=== PATIENT | female | born 1975 | race Caucasian/White ===

== ENCOUNTER 2021-01-31 11:24 | Emergency (ER) | payer OTHER, SELFPAY ==
--- NOTE | 2021-01-31 11:30 | ED.URI ---
HPI - URI/Sore Throat General Chief Complaint: Ear Stated Complaint: ear pain Time Seen by Provider: 01/31/21 11:30 Source: patient and RN notes reviewed History of Present Illness HPI Narrative: Patient is a 45-year-old female who presents the urgent care with complaints of right ear pain. Patient states is been ongoing for approximately 4 months and recurrent for the last 2 days. Patient denies of any fever, nausea, vomiting. Patient states that she has taken ibuprofen and used eardrops to the ear this morning. Patient states that the last time she was on antibiotics it did improve her symptoms. She has not called her PCP or her ENT prior to her arrival this morning. Denies of any other upper respiratory complaints. No other acute complaints. No acute distress noted. Patient aware of the plan of care. Some parts of this dictation were generated by voice recognition software and may contain typographical and/or grammatical inaccuracies. Related Data Allergies Allergy/AdvReac Type Severity Reaction Status Date / Time No Known Allergies Allergy Verified 01/31/21 11:44 Review of Systems Review of Systems: Narrative: CONSTITUTIONAL: Denies fever, chills, or sweats. EYES: Denies visual changes, redness, or discharge. ENT: Denies rhinorrhea, congestion, sore throat. Reports of right otalgia CARDIOVASCULAR: Denies chest pain, palpitations, or edema. RESPIRATORY: Denies cough or dyspnea. GASTROINTESTINAL: Denies abdominal pain, nausea, vomiting, or diarrhea. GENITOURINARY: Denies dysuria or hematuria. SKIN: Denies rash or itching. MUSCULOSKELETAL: Denies back pain, joint pain, or myalgia. NEUROLOGIC: Denies headache, numbness, or weakness. All other systems reviewed are negative, except as documented in HPI. PMFSH Comments At the time of my signature, I reviewed and agree with the nursing past medical, surgical, social, and family history. There is no relevant family history pertinent to the patient complaint. Exam Narrative: Exam Narrative: GENERAL: This is a well-nourished, well-developed patient, in no apparent distress. HEAD: normocephalic, atraumatic. EYES: PERRL. Sclera clear/white. Vision is grossly intact. EARS: External ears normal, auditory canals clear and without drainage, moderate fluid noted behind right TM with slight irritation, no serous otitis noted. Left TM normal without perforation. Hearing grossly intact. NOSE: External nose normal with no obvious nasal discharge, nares without redness, no rhinorrhea. THROAT: Mucous membranes moist, posterior pharynx clear. NECK: Neck supple CARDIOVASCULAR: Regular rate and rhythm without murmurs, gallops, or rubs. RESPIRATORY: Clear to auscultation. Breath sounds equal bilaterally. No wheezes, rales, or rhonchi. SKIN: warm, intact with no suspicious lesions or rash, good texture and turgor. NEURO: awake, alert, and oriented to person, place and time. There were no obvious focal neurologic abnormalities. EXTREMITIES: No clubbing, cyanosis, or edema. Course Vital Signs Vital signs: Vital Signs Temperature 99.2 F 01/31/21 11:39 Pulse Rate 68 01/31/21 11:39 Respiratory Rate 20 01/31/21 11:39 Blood Pressure 118/78 01/31/21 11:39 Pulse Oximetry 97 01/31/21 11:39 Temperature 99.2 F 01/31/21 11:39 Pulse Rate 68 01/31/21 11:39 Respiratory Rate 20 01/31/21 11:39 Blood Pressure 118/78 01/31/21 11:39 Pulse Oximetry 97 01/31/21 11:39 Reviewed MDM - URI/Sore Throat MDM Narrative Medical decision making narrative: Educated the patient on viral versus bacterial ear pain. Currently there is no necessary need for antibiotics however due to your chronic fluid buildup, bacterial infections can occur. If symptoms do not improve over the next 48 hours or you have any increase in symptoms associated with fevers?start the antibiotic and completed as necessary. Continue to use Tylenol/ibuprofen as needed for pain. Use a warm compress to the ear. It i
[2021-01-31 11:39] VITALS: BP 118/78; PULSE 68; RESP 20; TEMP 37.3; O2SAT 97
== END 2021-01-31 11:48 | disposition home or self-care (01) ==
PROVIDERS: Emergency Provider Nurse Practitioner Family; PCP Nurse Practitioner Family
DX: H92.01 Otalgia, right ear (principal)
CPT/HCPCS: 99213; G0463

== ENCOUNTER → 2021-03-19 13:37 | Outpatient (CLI) | payer OTHER, SELFPAY ==
--- NOTE | ~2021-03-19 | CT_ITS ---
EXAMINATION: CT sinus wo con DATE: 03/19/2021 13:57 INDICATION: Chronic sinusitis TECHNIQUE: Computed tomography (CT) of the paranasal sinuses was performed without intravenous contra st. The dose-length product was 272.05 mGy-cm. Automated exposure control and iterative reconstructio n technique were employed. COMPARISON: None FINDINGS: There is mucosal thickening with mucous retention cyst in the right maxillary sinus. Minima l left maxillary mucosal thickening. Ostiomeatal units are patent. Leftward nasal septal deviation. M astoids are pneumatized. No air-fluid levels. No significant mucoperiosteal reaction. IMPRESSION: 1. Mild maxillary sinus disease with 3 cm mucous retention cyst of the right maxillary sinus. Reviewed, dictated and finalized at location A. IMPRESSION: 1. Mild maxillary sinus disease with 3 cm mucous retention cyst of the right ma xillary sinus.
== END ==
PROVIDERS: PCP Allergy & Immunology; Visit Provider Allergy & Immunology
DX: J32.9 Chronic sinusitis, unspecified (principal); J34.2 Deviated nasal septum
CPT/HCPCS: 70486